=== PATIENT | male | born 1965 | race Caucasian/White ===

== ENCOUNTER 2017-09-02 21:34 | Emergency (ER) | payer OTHER, SELFPAY ==
[2017-09-02 21:36] VITALS: BP 123/91; PULSE 124; RESP 16; TEMP 37.3; O2SAT 98; BMI 32.8
[2017-09-02 22:34] LABS: Absolute Lymphocyte Count 0.75 X10^3/ul (0.83-4.51); Absolute Neutrophil Count 9.9 X10^3/uL (2.0-7.7); Basophil# 0.01 X10^3/uL; Basophil% 0.1 % (0-1); Eosinophil# 0.01 X10^3/uL; Eosinophils% 0.1 % (0-5); Hematocrit 42.9 % (40-54); Hemoglobin 14.3 g/dl (13.0-16.5); Lymphocyte # 0.75 X10^3/ul (4.0); Lymphocyte % 6.7 % (19-41); Mean Corp Hgb Conc 33.3 g/gl (32-36); Mean Corpuscular Hgb 28.9 pg (27.0-32.0); Mean Corpuscular Volume 86.7 fL (80-94); Mean Platelet Vol. 8.9 fl (6.2-12.0); Monocyte# 0.53 X10^3/uL; Monocyte% 4.7 % (0-10); Neutrophil # 9.92 X10^3/uL (2.7-7.7); Neutrophil % 88.2 % (47-70); POSITIVE COUNT NO; POSITIVE DIFFERENTIAL NO; POSITIVE MORPHOLOGY NO; Platelet Count 272 K/mm3 (150-450); RBC Distribution Width CV 13.5 % (11.6-14.6); RBC Distribution Width SD 42.4 fl (35.1-43.9); Red Blood Count 4.95 M/mm3 (4.6-6.2); White Blood Count 11.2 K/mm3 (4.4-11.0)
[2017-09-02 22:47] LABS: Anion Gap 7 (5-15); BUN 18 mg/dL (7-18); BUN/Creat Ratio 15.3 RATIO (10-20); Calcium,Total 9.2 mg/dL (8.5-10.1); Chloride 102 mmol/L (98-107); Creatinine, Serum 1.18 mg/dL (0.70-1.30); EST Glomerular Filtration Rate 69 mL/min (>60); Est Glom Filt Rate - Afr Amer 83 mL/min (>60); Estimated Creatinine Clearance 81.29 ml/min; Glucose 109 mg/dL (74-106); Potassium 4.4 mmol/L (3.5-5.1); Sodium Level 134 mmol/L (136-145)
--- NOTE | 2017-09-03 00:41 | CT_ITS ---
STUDY: CT ABDOMEN AND PELVIS WITH CONTRAST REASON FOR EXAM: Male, 51 years old. Normal abdominal pain. RADIATION DOSAGE (If Supplied By Facility): CTDIvol = ( 16.89 ) mGy, DLP = ( 1357.75 ) mGycm TECHNIQUE: Transaxial images were obtained from the dome of the diaphragm to the symphysis pubis without oral contrast. 100ml ml of Isovue 300 contrast was administered. Sagittal and coronal images were reconstructed. Individualized dose optimization techniques were used for this CT. COMPARISON: None. FINDINGS: The lung bases are clear. The liver is normal with no dilated intrahepatic biliary radicles. The gallbladder is normal with no gallstones and no pericholecystic fluid collection or streakiness. The spleen, pancreas and both adrenals are normal. Small renal cysts bilaterally. The stomach is normal. The sigmoid mesocolon is thickened with extensive pericolic streakiness around the sigmoid but no abscess formation. The findings consistent with acute sigmoid diverticulitis. There is no acute appendicitis. There is no small bowel distention. The abdominal wall is intact. There is no ascites, free intraperitoneal air or any evidence of epiploic appendagitis. The vascular structures in the retroperitoneum are normal The bones and joints seen are normal with no osteolytic or osteoblastic changes There is no retrocrural, retroperitoneal or mesenteric adenopathy. There is no mesenteric mistiness The urinary bladder is normal.. The prostate is normal There is no inguinal or pelvic adenopathy and there is no inguinal hernia . CT/Abdomen/Pelvis W IV Cont ONLY IMPRESSION: Acute sigmoid diverticulitis. No acute appendicitis. The urinary system is normal. Electronically Signed: Vargas Quiroz, at 2:21 EDT Tel , Service support ,
--- NOTE | 2017-09-03 00:42 | ED.VISSUMM ---
- ER Visit Summary Date of Service: 09/03/17 Chief Complaint: Abdominal pain History of Present Illness: The patient is a 51 M with recent diagnosis of diverticulitis who presents for 3 weeks of abdominal pain. He has had 3 weeks of lower abdominal pain that he describes as burning. He was evaluated 2 weeks ago at another hospital and diagnosed with diverticulitis. He completed a 10 day course of Augmentin and was feeling somewhat better. However he now is feeling worse. Last antibiotic was 5 days ago. For the last week he has been having small amounts of diarrhea with blood when wiping. He has associated nausea and chills but no measured fever. No other complaints. History of coronary artery disease status post MA and stent placement. Patient is on Plavix. Physical Examination: Vital signs: afebrile, tachycardic, normotensive, no hypoxia on room air General: well nourished, well developed, in no distress Skin: warm, dry, no rash, no pallor HEENT: normocephalic and atraumatic; PERRL, EOMI, moist mucous membranes Cardiovascular: tachycardic rate and rhythm without murmurs, no peripheral edema, 2+ pulses all distal extremities Respiratory: No increased work of breathing, lungs are clear to auscultation bilaterally, no rales, rhonchi or wheezing Abdominal: Abdomen is soft, tender in the left lower quadrant, suprapubic region and right lower quadrant with hypoactive bowel sounds, no guarding or rebound, no masses MSK: Moves all extremities, no deformities, normal strength Neuro: Awake and alert, oriented ?4. No facial droop, sensation and motor function intact and symmetric Test Results: Abnormal Lab Results 09/02/17 09/02/17 09/03/17 22:25 22:25 00:20 WBC 11.2 H RBC 4.95 Hgb 14.3 Hct 42.9 MCV 86.7 MCH 28.9 MCHC 33.3 RDW 13.5 RDW Differential 42.4 Plt Count 272 MPV 8.9 Immature Gran % (Auto) 0.200 Neut % (Auto) 88.2 H Lymph % (Auto) 6.7 L [place] % (Auto) 4.7 Eos % (Auto) 0.1 Baso % (Auto) 0.1 Absolute Neuts (auto) 9.9 H Absolute Lymphs (auto) 0.75 L Total Counted Not Reportable Sodium 134 L Potassium 4.4 Chloride 102 Carbon Dioxide 25.0 Anion Gap 7 BUN 18 Creatinine 1.18 Estim Creat Clear Calc 81.29 Est GFR (MDRD) Af Amer 83 Est GFR (MDRD) Non-Af 69 BUN/Creatinine Ratio 15.3 Glucose 109 H Lactic Acid Calcium 9.2 Urine Color Yellow Urine Clarity Clear Urine pH 6.0 Ur Specific [place] 1.020 Urine Protein Negative Urine Glucose (UA) Normal Urine Ketones 5 H Urine Occult Blood Negative Urine Nitrite Negative Urine Bilirubin Negative Urine Urobilinogen Normal Ur Leukocyte Esterase Negative Urine RBC 0 SEEN Urine WBC 0 SEEN Ur Squamous Epith Cells 0 SEEN Urine Bacteria 0 SEEN Urine Mucus 0 SEEN 09/03/17 01:10 WBC RBC Hgb Hct MCV MCH MCHC RDW RDW Differential Plt Count MPV Immature Gran % (Auto) Neut % (Auto) Lymph % (Auto) [place] % (Auto) Eos % (Auto) Baso % (Auto) Absolute Neuts (auto) Absolute Lymphs (auto) Total Counted Sodium Potassium Chloride Carbon Dioxide Anion Gap BUN Creatinine Estim Creat Clear Calc Est GFR (MDRD) Af Amer Est GFR (MDRD) Non-Af BUN/Creatinine Ratio Glucose Lactic Acid 1.2 Calcium Urine Color Urine Clarity Urine pH Ur Specific [place] Urine Protein Urine Glucose (UA) Urine Ketones Urine Occult Blood Urine Nitrite Urine Bilirubin Urine Urobilinogen Ur Leukocyte Esterase Urine RBC Urine WBC Ur Squamous Epith Cells Urine Bacteria Urine Mucus Clinical Impression(s) from Imaging Studies Abdomen/Pelvis CT 09/03/17 00:41 IMPRESSION: Acute sigmoid diverticulitis. No acute appendicitis. The urinary system is normal. Electronically Signed: Vargas Quiroz, at 2:21 EDT Tel , Service support , Emergency Department Course and Treatment: Pt given morphine and zofran for sx relief. Labs showed minimal leukocytosis, no hepatic/renal derangement. Normal lactate. CT abd/pel shows acute sigmoid diverticulitis without abscess or perforation. We discussed treatment options. Pt is very well appearing, and he did have initial improvement with course of augmentin. In my professional opinion, patient may have been incompletely treated with augmentin and does not necessarily need admission for IV antibiotics due to outpt treatment failure. We discussed cipro/flagyl outpatient trial, which patient was amenable to. He is to return to ED if he is not having improvement in a few days or if he has any worsening of his condition rather than improvement. Pt given first dose in ED. DC home with abx rx, phenergan and percocet rxs for symptomatic control. Treatment Plan: [] Disposition: [] Impression: acute sigmoid diverticulitis This note was generated with [employer] dictation software. It may contain incorrect words, spelling, and punctuation that were not noted in review of the chart prior to signing ED Disposition - Plan for ED Patient: Disposition: Home or Assisted Living Chief Complaint: Abd Pain Instructions: ED Diverticulitis Prescriptions: Oxycodone HCl/Acetaminophen [Percocet 5/325] 1 tab PO Q6H PRN PRN 5 Days #12 tab PRN Reason: Pain proMETHazine tablet [Phenergan] 25 mg PO Q6H PRN PRN #20 tab PRN Reason: Nausea Metronidazole [Flagyl] 500 mg PO Q8H #30 tab Ciprofloxacin [Cipro] 500 mg PO BID #20 tab Referrals: Shireen Eng MD [STAFF PHYSICIAN] - 3-5 Days if not improving Care Physician,No Primary [Primary Care Provider] - Additional Instructions: Take the antibiotics as prescribed for the entire 10 days, even if your abdominal pain is improved prior to 10 days being up. Do not drink alcohol while on the antibiotics because it will make you very sick. He may use the Percocet for pain and Phenergan to help with nausea, especially if the antibiotics make you sick to her stomach. If you have any worsening of your condition or any new concerning symptoms, please return immediately to the emergency department for another evaluation.
[2017-09-03 01:02] LABS: Bacteria 0 SEEN /hpf (None Seen); Mucous, Urine 0 SEEN /hpf (<or=2+); Red Blood Cells-Urine 0 SEEN /hpf (0-5); Squamous Epithelial Cells - UA 0 SEEN /hpf (0-5); White Blood Cells 0 SEEN /hpf (0-5)
[2017-09-03 01:04] LABS: Color, Urine Yellow (Yellow); Glucose, Dipstick Normal (Normal); Ketone-Dipstick 5 mg/dl (Negative); Leukocyte Esterase-Dipstick Negative /ul (Negative); Nitrite-Dipstick Negative (Negative); Occult Blood-Urine Negative /ul (Negative); Protein-Dipstick Negative (Negative); Urine Bilirubin Dipstick Negative (Negative); Urine Clarity Clear (Clear); Urine Urobilinogen Normal (Normal)
[2017-09-03] MEDS: 0.9% Normal Saline 1,000 ML 1000 ML IV (01:04)
[2017-09-03] MEDS: Ondansetron 4 MG/2 ML Vial IV (01:04)
[2017-09-03] MEDS: morphine 8 MG/ML Syringe IV (01:05)
[2017-09-03 01:48] LABS: Lactic Acid 1.2 mmol/L (0.4-2.0)
[2017-09-03 02:19] VITALS: BP 156/98; PULSE 110; RESP 18; O2SAT 98
--- NOTE | 2017-09-03 03:34 | ED.DEP ---
ED Disposition - Plan for ED Patient: Disposition: Home or Assisted Living Chief Complaint: Abd Pain Instructions: ED Diverticulitis Prescriptions: Oxycodone HCl/Acetaminophen [Percocet 5/325] 1 tab PO Q6H PRN PRN 5 Days #12 tab PRN Reason: Pain proMETHazine tablet [Phenergan] 25 mg PO Q6H PRN PRN #20 tab PRN Reason: Nausea Metronidazole [Flagyl] 500 mg PO Q8H #30 tab Ciprofloxacin [Cipro] 500 mg PO BID #20 tab Referrals: Care Physician,No Primary [Primary Care Provider] - Shireen Eng MD [STAFF PHYSICIAN] - 3-5 Days if not improving Additional Instructions: Take the antibiotics as prescribed for the entire 10 days, even if your abdominal pain is improved prior to 10 days being up. Do not drink alcohol while on the antibiotics because it will make you very sick. He may use the Percocet for pain and Phenergan to help with nausea, especially if the antibiotics make you sick to her stomach. If you have any worsening of your condition or any new concerning symptoms, please return immediately to the emergency department for another evaluation.
[2017-09-03 03:47] VITALS: BP 121/82; PULSE 107; RESP 18; O2SAT 96
[2017-09-03] MEDS: metroNIDAZOLE 500 MG Tablet PO (03:56)
[2017-09-03] MEDS: Ciprofloxacin 250 MG Tablet 500 MG PO (03:56)
== END 2017-09-03 03:57 | disposition home or self-care (01) ==
PROVIDERS: Emergency Provider Emergency Medicine
DX: K57.32 Diverticulitis of large intestine without perforation or abscess without bleeding (principal); I25.10 Atherosclerotic heart disease of native coronary artery without angina pectoris; I25.2 Old myocardial infarction; E66.9 Obesity, unspecified; Z95.5 Presence of coronary angioplasty implant and graft; Z79.01 Long term (current) use of anticoagulants; Z79.899 Other long term (current) drug therapy
CPT/HCPCS: 74177; 80048; 81001; 83605; 85025; 96361; 96374; 96375; 99285; J7030; Q9967; J2405

== ENCOUNTER 2017-09-07 12:14 | Emergency (ER) | payer OTHER, SELFPAY ==
[2017-09-07 12:15] VITALS: BP 160/95; PULSE 97; RESP 14; TEMP 36.6; O2SAT 99; BMI 32.5
[2017-09-07 14:00] LABS: Absolute Lymphocyte Count 1.42 X10^3/ul (0.83-4.51); Basophil# 0.03 X10^3/uL; Basophil% 0.4 % (0-1); Eosinophil# 0.04 X10^3/uL; Eosinophils% 0.6 % (0-5); Hematocrit 47.6 % (40-54); Lymphocyte # 1.42 X10^3/ul (4.0); Lymphocyte % 20.1 % (19-41); Mean Corp Hgb Conc 33.6 g/gl (32-36); Mean Corpuscular Hgb 29.1 pg (27.0-32.0); Mean Corpuscular Volume 86.7 fL (80-94); Mean Platelet Vol. 8.7 fl (6.2-12.0); Monocyte# 0.59 X10^3/uL; Monocyte% 8.4 % (0-10); Neutrophil # 4.95 X10^3/uL (2.7-7.7); Neutrophil % 70.1 % (47-70); POSITIVE COUNT NO; POSITIVE DIFFERENTIAL NO; POSITIVE MORPHOLOGY NO; Platelet Count 343 K/mm3 (150-450); RBC Distribution Width CV 13.5 % (11.6-14.6); RBC Distribution Width SD 42.9 fl (35.1-43.9); Red Blood Count 5.49 M/mm3 (4.6-6.2); White Blood Count 7.1 K/mm3 (4.4-11.0)
[2017-09-07] MEDS: Ondansetron 4 MG/2 ML Vial IV (14:18)
[2017-09-07 14:19] LABS: AST(SGOT) 77 U/L (15-37); Alanine Aminotransfer ALT/SGPT 130 U/L (16-61); Alkaline Phosphatase 101 U/L (45-117); Anion Gap 8 (5-15); BUN 18 mg/dL (7-18); Calcium,Total 8.8 mg/dL (8.5-10.1); Chloride 104 mmol/L (98-107); EST Glomerular Filtration Rate 68 mL/min (>60); Est Glom Filt Rate - Afr Amer 82 mL/min (>60); Estimated Creatinine Clearance 79.94 ml/min; Glucose 92 mg/dL (74-106); Potassium 4.3 mmol/L (3.5-5.1); Sodium Level 137 mmol/L (136-145)
--- NOTE | 2017-09-07 15:11 | ED.DCSUM_ITS ---
- ER Visit Summary Date of Service: 09/07/17 Chief Complaint: dark stool History of Present Illness: The patient is a 51 M presenting with complaint of dark stool. Patient was evaluated recently for diverticulitis and placed on Cipro and Flagyl. Patient states he is feeling much better with the antibiotic treatment, however yesterday he noticed his stool became black. It is soft but formed, not like tar. He felt fatigued yesterday. His pain has improved and almost resolved from the diverticulitis. He denies fever, vomiting, diarrhea, back pain. He does still have minor lower abdominal pain consistent with his diverticulitis. He is not on any blood thinners. Physical Examination: Vital signs: afebrile, hemodynamically stable, no hypoxia on room air General: well nourished, well developed, in no distress Skin: warm, dry, no rash, no pallor HEENT: normocephalic and atraumatic; PERRL, EOMI, moist mucous membranes Cardiovascular: regular rate and rhythm without murmurs, no peripheral edema, 2 + pulses all distal extremities Respiratory: No increased work of breathing, lungs are clear to auscultation bilaterally, no rales, rhonchi or wheezing Abdominal: Abdomen is soft, nontender with normoactive bowel sounds, no guarding or rebound, no masses; rectal exam shows dark brown stool on glove, no masses, no tenderness, guaiac-negative MSK: Moves all extremities, no deformities, normal strength Neuro: Awake and alert, oriented ?4. No facial droop, sensation and motor function intact and symmetric Test Results: Abnormal Lab Results 09/07/17 09/07/17 13:05 13:05 WBC 7.1 RBC 5.49 Hgb 16.0 Hct 47.6 MCV 86.7 MCH 29.1 MCHC 33.6 RDW 13.5 RDW Differential 42.9 Plt Count 343 MPV 8.7 Immature Gran % (Auto) 0.400 Neut % (Auto) 70.1 H Lymph % (Auto) 20.1 [place] % (Auto) 8.4 Eos % (Auto) 0.6 Baso % (Auto) 0.4 Absolute Neuts (auto) 5.0 Absolute Lymphs (auto) 1.42 Total Counted Not Reportable Sodium 137 Potassium 4.3 Chloride 104 Carbon Dioxide 25.0 Anion Gap 8 BUN 18 Creatinine 1.20 Estim Creat Clear Calc 79.94 Est GFR (MDRD) Af Amer 82 Est GFR (MDRD) Non-Af 68 BUN/Creatinine Ratio 15.0 Glucose 92 Calcium 8.8 Total Bilirubin 0.50 AST 77 H ALT 130 H Alkaline Phosphatase 101 Total Protein 8.0 Albumin 4.0 Globulin 4.0 Albumin/Globulin Ratio 1.0 Emergency Department Course and Treatment: Given the concern for GI bleed, labs were performed, showing no anemia. BUN was not elevated. Patient's rectal exam showed dark brown stool that was not distinctly melanotic. Stool was guaiac negative. Thus it does not seem patient is having actual melena but instead is having dark stool. We discussed medication she is taking, and he is not currently on any iron supplements or Pepto-Bismol. Patient will continue his diverticulitis treatment. He agreed with this plan was discharged home. Treatment Plan: [] Disposition: [] Impression: Diverticulitis, subsequent visit This note was generated with [employer] dictation software. It may contain incorrect words, spelling, and punctuation that were not noted in review of the chart prior to signing ED Disposition - Plan for ED Patient: Disposition: Home or Assisted Living Chief Complaint: GI Bleed Instructions: ED Diverticulitis Referrals: Care Physician,No Primary [Primary Care Provider] - Additional Instructions: Your stool tested negative for blood. Please continue the medications as prescribed for your diverticulitis. Please follow-up with to whom you were referred at your last visit. If you have any worsening of your condition or any new concerning symptoms, please return immediately to the emergency department for another evaluation.
[2017-09-07 15:31] VITALS: BP 122/91; PULSE 74; RESP 16; O2SAT 97
== END 2017-09-07 15:31 | disposition home or self-care (01) ==
PROVIDERS: Emergency Provider Emergency Medicine
DX: K57.92 Diverticulitis of intestine, part unspecified, without perforation or abscess without bleeding (principal)
CPT/HCPCS: 80053; 82274; 85025; 96374; 99283; J7030; A4216; J2405

== ENCOUNTER 2018-06-06 15:24 | Emergency (ER) | payer OTHER, SELFPAY ==
[2018-06-06 15:24] VITALS: BP 162/95; PULSE 87; RESP 16; TEMP 36.4; O2SAT 97; BMI 29.2
--- NOTE | 2018-06-06 15:39 | ED.DCSUM_ITS ---
History of Present Illness Chief Complaint: Upper Extremity Injury Detail of Chief Complaint: Atraumatic left-sided neck and upper extremity pain Informant: Patient Onset: Month(s) - Intermittent migratory times 1 month neck and left shoulder pain past 24 hours Context: Sudden Onset Timing: Intermittent Quality: Tightness Location: Anterior left neck, left trapezius region and left arm Current Severity: Mild Maximum Severity: Moderate Worsened by: Movement Relieved by: Improvement with indomethacin 50 mg 3 times daily Associated Symptoms: None Narrative: Patient is a middle-aged male with history of coronary disease, hypertension, hypercholesterolemia and gout who presents with migratory left upper extremity pain for 1 month and 24 hours of anterior neck tightness, trapezius muscle tightness and left arm tightness. He apparently slept in an unusual position. Pain started afterwards. He denies paresthesia, anesthesia or motor weakness. He denies cardiac respiratory symptoms. He denies weakness in his left upper extremity. He is right-hand dominant. Prior similar symptoms: No Recent Illness/Hospitalization: No - Past Medical History (1) Hypercholesterolemia Status: Chronic (2) History of gout Status: Suspected (3) CAD (coronary artery disease) Status: Chronic (4) BMI 34.0-34.9,adult Status: Suspected (5) Essential (primary) hypertension Status: Suspected Past Medical History - Allergies and Home Meds Allergies/Adverse Reactions: Allergies No Known Allergies Allergy (Verified 06/06/18 15:26) Primary Care Physician: Care Physician,No Primary [Primary Care Provider] - Prior records reviewed: Yes Past Medical History: None Surgical History: - - Cardiac catheterization with placement of 2 stents Smoking Status: Never smoker - Family History Paternal Family History: Reports: No pertinent history Review of Systems General: Denies: Chills, Fever, Malaise, Subjective, Sweats, Weight loss, - Eyes: Denies: Visual changes - bilaterally, Blurred Vision - bilaterally, Diplopia ENT: Denies: Bilateral ear pain, Rhinorrhea, Sore throat Cardiovascular: Denies: Chest pain, Palpitations Respiratory: Denies: Dyspnea, Cough, Dyspnea on exertion Musculoskeletal: Reports: Neck pain, Extremity Pain. Denies: Myalgias, Arthralgias, Swelling Skin: Denies: Rash, Abscess, Abrasions, Wounds, -, - Neurological: Denies: Headache, Weakness, Parasthesia, Numbness, -, - Hematologic: Denies: Easy bruising, Easy bleeding Physical Exam Vital Signs/Narrative: Vital Signs Temp Pulse Resp BP Pulse Ox 06/06/18 15:24 97.6 F L 87 16 162/95 H 97 Inital Vital Signs reviewed: Yes General: Well nourished, Well developed, No Acute Distress Head: Normocephalic, Atraumatic Eyes: Perrl, EOMI. Negative for: Pale conjunctiva, Scleral icterus ENT: Moist mucous membranes, No rhinorrhea, TM's clear Neck: Negative for: Supple, Nontender, No lymphadenopathy, No JVD, - Cardiovascular: Regular rate, Regular rhythm, No murmurs, Normal S1, Normal S2 Respiratory: No distress, CTA bilaterally, Chest nontender Extremities: Nontender, No edema Skin: Normal color, No rash Neurological: Alert, Oriented x3, Cranial nerves II-XII grossly intact, Normal Strength, Normal Sensation, Normal DTR - Biceps, brachialis and triceps reflex are 1+ and symmetric. Motor strength is 5/5 upper extremity. Axillary, median, radial and ulnar function intact. Diagnostic/Tx/Re-eval - Medical Decision Making Patient has pain with rotation of the head to the left side. He has no discomfort with flexion extension against resistance or portion to the right or left against resistance. He does have reproduce the pain over the sternocleidomastoid muscle on the left. Patient did report improvement with anti-inflammatory. Will prescribe anti-inflammatory. He has no history of renal disease, diabetes or upper GI bleed. Pain is not in a radicular dermatome to suggest cervical neck problem i.e. herniated disc, stenosis or foramen narrowing. ED Disposition - Plan for ED Patient: Disposition: Home or Assisted Living Diagnosis: Strain of sternocleidomastoid muscle Instructions: ED Sprain Strain Neck Prescriptions: Naproxen [Naprosyn] 500 mg PO BID #14 tab Referrals: Care Physician,No Primary [Primary Care Provider] - Jaylen Spivey DO [STAFF PHYSICIAN] - 1-2 Weeks Additional Instructions: You were referred to Dr. Andrew since she did not have a local pattern room attendant since relocating to [place]. Also referred to Dr. Jaylen Spivey for primary care.
[2018-06-06] MEDS: Naproxen 250 MG Tablet 500 MG PO (16:04)
[2018-06-06 16:06] VITALS: BP 156/98; PULSE 85; RESP 16; O2SAT 97
== END 2018-06-06 16:08 | disposition home or self-care (01) ==
LOC: ED 15:56
PROVIDERS: Emergency Provider Emergency Medicine
DX: S16.1XXA Strain of muscle, fascia and tendon at neck level, initial encounter (principal); X58.XXXA Exposure to other specified factors, initial encounter; Y93.84 Activity, sleeping; Y92.9 Unspecified place or not applicable; I25.10 Atherosclerotic heart disease of native coronary artery without angina pectoris; I10 Essential (primary) hypertension; E78.00 Pure hypercholesterolemia, unspecified; M10.9 Gout, unspecified; Z95.5 Presence of coronary angioplasty implant and graft; Z79.01 Long term (current) use of anticoagulants; Z79.899 Other long term (current) drug therapy
CPT/HCPCS: 99283

== ENCOUNTER → 2019-04-07 12:56 | Outpatient (CLI) | payer OTHER, SELFPAY ==
[2019-04-07 14:44] LABS: ALB/GLOB Ratio 1.3 RATIO (0.9-2.4); AST(SGOT) 19 U/L (15-37); Alanine Aminotransfer ALT/SGPT 35 U/L (16-61); Albumin, Serum 4.1 g/dL (3.2-5.0); Alkaline Phosphatase 80 U/L (45-117); Anion Gap 4 (5-15); BUN 23 mg/dL (7-18); BUN/Creat Ratio 17.4 RATIO (10-20); Calcium,Total 9.2 mg/dL (8.5-10.1); Chloride 108 mmol/L (98-107); Cholesterol 128 mg/dL (200); Creatinine, Serum 1.32 mg/dL (0.70-1.30); EST Glomerular Filtration Rate 60 mL/min (>60); Est Glom Filt Rate - Afr Amer 73 mL/min (>60); Globulin 3.1 g/dL (2.2-4.2); Glucose 106 mg/dL (74-106); High Density Lipoprotein 46 mg/dL; Potassium 4.3 mmol/L (3.5-5.1); Protein, Total 7.2 g/dL (6.4-8.2); Sodium Level 139 mmol/L (136-145); Triglycerides 82 mg/dL; Very Low Density Lipoprotein 16 mg/dL (5-40)
== END ==
LOC: MTLAB 12:59
PROVIDERS: PCP Family Medicine; Referring Provider Family Medicine; Visit Provider Family Medicine
DX: I10 Essential (primary) hypertension (principal)
CPT/HCPCS: 36415; 80053; 80061

== ENCOUNTER → 2019-09-04 10:19 | Outpatient (CLI) | payer OTHER, SELFPAY ==
--- NOTE | 2019-09-04 10:24 | MRI_ITS ---
STUDY: MRI LUMBAR SPINE WITHOUT CONTRAST REASON FOR EXAM: Male, 53 years old. lumbar strain, unable to stand up straight, hunched to the right , pain and numbness in L leg/foot. TECHNIQUE: Standardized fat and water weighted pulse sequences were obtained in the sagittal and axial planes. COMPARISON: None FINDINGS: T12-L1: Normal endplates. Normal disc height, hydration and morphology. Normal bilateral facet joints. Normal central canal and bilateral lateral recesses. Normal bilateral intervertebral neural foramina. Normal lumbar lordosis. There is no substantial scoliosis. Normal conus medullaris that terminates at the L1/L2. L1-2: Normal endplates. Normal disc height, hydration and morphology. Normal bilateral facet joints. Normal central canal and bilateral lateral recesses. Normal bilateral intervertebral neural foramina. L2-3: Normal endplates. Normal disc height, hydration and morphology. Normal bilateral facet joints. Normal central canal and bilateral lateral recesses. Normal bilateral intervertebral neural foramina. L3-4: Normal endplates. Normal disc height, hydration and morphology. Normal bilateral facet joints. Normal central canal and bilateral lateral recesses. Normal bilateral intervertebral neural foramina. L4-5: Mild bilateral facet hypertrophy and ligament flavum hypertrophy. Mild broad disc protrusion produces mild spinal stenosis, mild right lateral recess stenosis, moderate left lateral recess stenosis with abutment of the left L5 nerve root and mild bilateral neural foraminal stenosis. L5-S1: Normal endplates. Normal disc height, hydration and morphology. Normal bilateral facet joints. Normal central canal and bilateral lateral recesses. Normal bilateral intervertebral neural foramina. Normal visualized sacral ala. Normal visualized paraspinous soft tissue structures. MRI/Spine Lumbar (Routine) IMPRESSION: Focal degenerative disc disease at L4/L5 as described above. Electronically Signed: Guille Felix MD at 16:35 EDT Tel , Service support ,
== END ==
PROVIDERS: PCP Family Medicine; Referring Provider Family Medicine; Visit Provider Family Medicine
DX: S33.5XXA Sprain of ligaments of lumbar spine, initial encounter (principal)
CPT/HCPCS: 72148

== ENCOUNTER → 2019-09-27 09:45 | Outpatient (CLI) | payer OTHER, SELFPAY ==
--- NOTE | 2019-09-27 09:50 | US_ITS ---
STUDY: RENAL ULTRASOUND - COMPLETE REASON FOR EXAM: Male, 53 years old. RENAL CYST TECHNIQUE: Ultrasound evaluation of the kidneys was performed with real-time and static condon-scale imaging. COMPARISON: None. FINDINGS: RIGHT KIDNEY: Normal location of the right kidney, which is normal in size. The right kidney measures 11.1 cm x 5 cm x 5.6 cm. There is a normal cortex of the right kidney. The renal cortex measures 2.8 cm. There is no right renal mass or cyst. There are no right renal calculi. There is no right hydronephrosis. DISTAL RIGHT URETER: There is non-visualization of the distal right ureter. There is no demonstrated right ureterovesical junction calculus. There is no demonstrated right ureteral jet. LEFT KIDNEY: Normal location of the left kidney, which is normal in size. The left kidney measures 12.1 cm x 5.6 x 6.2 cm. There is a normal cortex of the left kidney. The renal cortex measures 2.8 cm. There is no left renal mass or cyst. There are no left renal calculi. There is no left hydronephrosis. DISTAL LEFT URETER: There is non-visualization of the distal left ureter. There is no demonstrated left ureterovesical junction calculus. There is no demonstrated left ureteral jet. BLADDER: The urinary bladder is only partially filled at this time. US/Kidney and Bladder IMPRESSION: Normal ultrasound of the kidneys. Electronically Signed: Kurt Carbajal, at 15:04 EDT , Service support ,
== END ==
LOC: US 09:48
PROVIDERS: PCP Family Medicine; Referring Provider Family Medicine; Visit Provider Family Medicine
DX: N28.1 Cyst of kidney, acquired (principal)
CPT/HCPCS: 76770